=== PATIENT | female | born 1975 | race Caucasian/White ===

== ENCOUNTER 2017-04-30 10:28 | Observation (INO) | payer OTHER ==
[2017-04-30] MEDS ORDERED: BABY ASPIRIN 81 MG CHEW PO ONE (10:43)
--- NOTE | 2017-04-30 10:49 | ERPHSYRPT ---
- History of Present Illness Time Seen by Provider: 04/30/17 10:39 Historian: patient Exam Limitations: no limitations Patient Subjective Stated Complaint: PT STATES SHE WAS STANDING AT WORK AND BEGAN HAVING CHEST PAIN. DENIESA [place] NAUSEA, OR DIAPHORESIS. DID NOT BECOME SOB. Triage Nursing Assessment: PT PINK, WARM, DRY. RADIAL PULSES STRONG. LUNG SOUNDS CLEAR AND EQUAL. Physician History: 41-year-old white female with history of high blood pressure arrives with complaint of pain in her anterior left chest and an upper mid chest symptoms since 7:30 described as intermittent she describes the pain which is she states lasts seconds in duration but is recurrent and a feeling of uncomfortableness in her anterior chest which has been lasting longer as long as 5 minutes at a time again intermittently. She is not short of breath she she is not coughing she has no nausea vomiting diaphoresis. Past medical history includes high blood pressure Past surgical history includes tonsillectomy and adenoidectomy and tubal ligation. Timing/Duration: today (began at 7:00 this morning at work) Activities at Onset: other (standing at work) Quality: pressure, tightness Location: other (left upper chest and upper middle chest) Chest Pain Radiation: no radiation Severity of Pain-Max: moderate Severity of Pain-Current: none Modifying Factors: Improves With: nothing Associated Symptoms: No nausea, No vomiting, No palpitations, No heartburn, No abdominal pain, No shortness of breath, No cough, No hurts to breathe, No diaphoresis, No chills, No fever, No fatigue, No weakness, No swelling/lump in chest, No syncope, No rash, No headache, No dizziness, No edema, No back pain Prior Chest Pain/Cardiac Workup: no prior chest pain Nitro Today/Relief: no nitro taken today Aspirin Treatment Today: 81 mg x 4, provided by ED Allergies/Adverse Reactions: Penicillins Allergy (Verified 04/30/17 10:37) Sulfa (Sulfonamide Antibiotics) Allergy (Verified 04/30/17 10:37) Home Medications: Losartan Potassium 25 mg PO DAILY 04/30/17 [History] Hx Tetanus, Diphtheria Vaccination/Date Given: Yes (UP TO DATE) Hx Influenza Vaccination/Date Given: No Hx Pneumococcal Vaccination/Date Given: No Immunizations Up to Date: Yes - Review of Systems Constitutional: No Fever, No Chills Eyes: No Symptoms Ears, Nose, & Throat: No Symptoms Respiratory: No Cough, No Dyspnea Cardiac: Chest Pain, No Edema, No Palpitations, No Syncope, No Orthopnea, No PND Abdominal/Gastrointestinal: No Abdominal Pain, No Nausea, No Vomiting, No Diarrhea Genitourinary Symptoms: No Dysuria Musculoskeletal: No Back Pain, No Neck Pain Skin: No Rash Neurological: No Dizziness, No Focal Weakness, No Sensory Changes Psychological: No Symptoms Endocrine: No Symptoms All Other Systems: Reviewed and Negative - Past Medical History Pertinent Past Medical History: Yes Cardiac History: Hypertension - Past Surgical History Past Surgical History: Yes Female Surgical History: Tubal Ligation - Social History Smoking Status: Never smoker Exposure to second hand smoke: No Drug Use: none Patient Lives Alone: No - Female History Hx Last Menstrual Period: MID MARCH 2017 - Nursing Vital Signs Nursing Vital Signs: Initial Vital Signs Temperature 98.6 F 04/30/17 10:29 Pulse Rate 80 04/30/17 10:29 Respiratory Rate 18 04/30/17 10:29 Blood Pressure 140/77 04/30/17 10:29 O2 Sat by Pulse Oximetry 100 04/30/17 10:29 Pain Scale Pain Intensity 0 - Physical Exam General Appearance: no apparent distress, alert Eye Exam: PERRL/EOMI, eyes nml inspection Ears, Nose, Throat Exam: normal ENT inspection, moist mucous membranes Neck Exam: normal inspection, non-tender, supple, full range of motion Respiratory Exam: normal breath sounds, lungs clear, No respiratory distress Cardiovascular Exam: regular rate/rhythm, normal heart sounds Gastrointestinal/Abdomen Exam: soft, No tenderness, No mass Back Exam: normal inspection, No CVA tenderness, No vertebral tenderness Extremity Exam: normal inspection, normal range of motion Neurologic Exam: alert, oriented x 3, cooperative, normal mood/affect, sensation nml, No motor deficits Skin Exam: normal color SpO2 Interpretation: normal (100%) SpO2: 100 Oxygen Delivery: Room Air - Course Nursing assessment & vital signs reviewed: Yes EKG Interpreted by Me: RATE (69m bpm), Sinus Rhythm, NORMAL AXIS, NORMAL QRS, Other (EKG: Normal sinus rhythm, 69 bpm, normal axis, no acute ST or T wave changes noted, essentially normal EKG) - Radiology Exams Chest X-ray Interpretation: Discussed w/ radiologist, Other (chest x-ray: Apical lordotic chest demonstrates normal heart lungs and bony thorax with incidental scattered calcified granulomas) Ordered Tests: Active Orders 24 hr Category Date Time Status Design Engineering Manager STAT Care 04/30/17 10:37 Active EKG-ER Only STAT Care 04/30/17 10:37 Active IV Insertion STAT Care 04/30/17 10:37 Active CHEST 1 VIEW (PORTABLE) Stat Exams 04/30/17 10:43 Completed CBC W DIFF Stat Lab 04/30/17 10:50 Completed CMP Stat Lab 04/30/17 10:50 Completed D-DIMER QUANTITATION Stat Lab 04/30/17 10:50 Completed HCG QUALITATIVE,SERUM Stat Lab 04/30/17 10:50 Completed TROPONIN Q3H Lab 04/30/17 10:45 Completed TROPONIN Q3H Lab 04/30/17 13:45 Ordered TROPONIN Q3H Lab 04/30/17 16:45 Ordered TROPONIN Q3H Lab 04/30/17 19:45 Ordered TROPONIN Q3H Lab 04/30/17 22:45 Ordered Medication Summary Discontinued Medications Generic Name Dose Route Start Last Admin Trade Name Freq PRN Reason Stop Dose Admin Aspirin 324 mg 04/30/17 10:43 04/30/17 10:52 Baby Aspirin 81 Mg Chew PO 04/30/17 10:44 324 mg STAT ONE Administration Aspirin Confirm 04/30/17 10:51 Baby Aspirin 81 Mg Chew Administered 04/30/17 10:52 Dose 324 mg .ROUTE .STK-MED ONE Lab/Rad Data: Laboratory Result Diagrams 04/30/17 10:50 04/30/17 10:50 Laboratory Results 04/30/17 04/30/17 04/30/17 Range/Units 10:50 10:50 10:50 WBC (4.0-10.5) K/mm3 RBC (4.1-5.4) M/mm3 Hgb (12.0-16.0) gm/dl Hct (35-47) % MCV (78-100) fl MCH (26-32) pg MCHC (32-36) g/dl RDW (11.5-14.0) % Plt Count (150-450) K/mm3 MPV (6-9.5) fl Gran % (36.0-66.0) % Lymphocytes % (24.0-44.0) % Monocytes % (0.0-12.0) % Eosinophils % (0.00-5.0) % Basophils % (0.0-0.4) % Basophils # (0-0.4) D-Dimer 217 (0-500) ng/mL Sodium 139 (136-145) mEq/L Potassium 4.1 (3.5-5.1) mEq/L Chloride 104 (98-107) mEq/L Carbon Dioxide 25.9 (21-32) mEq/L Anion Gap 13.2 (5-15) MEQ/L BUN 8 L (9-20) mg/dL Creatinine 0.69 (0.55-1.30) mg/dl Estimated GFR > 60 ML/MIN Glucose 97 (70-110) MG/DL Calcium 9.2 (8.5-10.1) mg/dL Total Bilirubin 0.20 (0.2-1.0) mg/dL AST 12 L (15-37) U/L ALT 19 (12-78) U/L Alkaline Phosphatase 114 (46-116) U/L Troponin I (0.000-0.056) ng/ml Serum Total Protein 7.0 (6.4-8.2) gm/dL Albumin 3.5 (3.4-5.0) g/dL Serum , Qual NEGATIVE (Negative) 04/30/17 04/30/17 Range/Units 10:50 10:45 WBC 14.1 H (4.0-10.5) K/mm3 RBC 4.34 (4.1-5.4) M/mm3 Hgb 12.1 (12.0-16.0) gm/dl Hct 38.8 (35-47) % MCV 89.4 (78-100) fl MCH 27.9 (26-32) pg MCHC 31.2 L (32-36) g/dl RDW 15.0 H (11.5-14.0) % Plt Count 365 (150-450) K/mm3 MPV 10.0 H (6-9.5) fl Gran % 69.0 H (36.0-66.0) % Lymphocytes % 23.1 L (24.0-44.0) % Monocytes % 6.9 (0.0-12.0) % Eosinophils % 0.8 (0.00-5.0) % Basophils % 0.2 (0.0-0.4) % Basophils # 0.03 (0-0.4) D-Dimer (0-500) ng/mL Sodium (136-145) mEq/L Potassium (3.5-5.1) mEq/L Chloride (98-107) mEq/L Carbon Dioxide (21-32) mEq/L Anion Gap (5-15) MEQ/L BUN (9-20) mg/dL Creatinine (0.55-1.30) mg/dl Estimated GFR ML/MIN Glucose (70-110) MG/DL Calcium (8.5-10.1) mg/dL Total Bilirubin (0.2-1.0) mg/dL AST (15-37) U/L ALT (12-78) U/L Alkaline Phosphatase (46-116) U/L Troponin I < 0.017 (0.000-0.056) ng/ml Serum Total Protein (6.4-8.2) gm/dL Albumin (3.4-5.0) g/dL Serum , Qual (Negative) - Progress Progress: improved Air Movement: fair Progress Note: 04/30/17 11:55 Patient with complaints that she still has a little "little bit" of discomfort left anterior chest. Patient's chest x-ray, EKG, CBC CMP troponin are normal. D-dimeris within normal limits, Will discuss the patient's case with DR Orosco. 04/30/17 12:03 Patient's case is discussed with Dr. Orosco will place patient on observation obtain serial troponins continue telemetry - Departure Time of Disposition: 12:04 Departure Disposition: Observation Clinical Impression: Chest pain Qualifiers: Chest pain type: unspecified Qualified Code(s): R07.9 - Chest pain, unspecified Condition: Fair Critical Care Time: No Referrals: SRIKANTH BRYANT [Primary Care Provider] -
[2017-04-30] MEDS ORDERED: BABY ASPIRIN 81 MG CHEW ONE (10:51)
[2017-04-30 10:53] LABS: BASOPHIL % 0.2 % (0.0-0.4); Eosinophil % 0.8 % (0.00-5.0); Lymphocytes % 23.1 % (24.0-44.0); Mean Cell Volume 89.4 fl (78-100); Mean Corpuscular Hemoglobin 27.9 pg (26-32); Monocytes % 6.9 % (0.0-12.0); Platelet Count 365 K/mm3 (150-450); Red Blood Count 4.34 M/mm3 (4.1-5.4); White Blood Count 14.1 K/mm3 (4.0-10.5)
--- NOTE | 2017-04-30 10:58 | XRAY ---
Indication: Chest pain. Comparison: None Portable apical lordotic chest demonstrates normal heart, lungs, and bony thorax with incidental scattered calcified granulomas.
[2017-04-30 11:48] LABS: ALBUMIN 3.5 g/dL (3.4-5.0); ALKALINE PHOSPHATASE 114 U/L (46-116); ANION GAP 13.2 MEQ/L (5-15); BLOOD UREA NITROGEN 8 mg/dL (9-20); CHLORIDE 104 mEq/L (98-107); Carbon Dioxide 25.9 mEq/L (21-32); Glucose 97 MG/DL (70-110); Potassium 4.1 mEq/L (3.5-5.1); SGOT/AST 12 U/L (15-37); SGPT/ALT 19 U/L (12-78); SODIUM 139 mEq/L (136-145)
[2017-04-30] MEDS ORDERED: Zofran 4 MG/2 ML VIAL IV PRN (12:17)
[2017-04-30] MEDS ORDERED: MORPHINE SULFATE 4 MG INJ IV PRN (12:17)
[2017-04-30] MEDS: TYLENOL 325 MG PO PRN ×2 (14:35→22:17)
[2017-04-30] MEDS: Voltaren GEL TOP SCH ×2 (16:23→22:15)
[2017-04-30] MEDS: Cozaar 50 MG PO SCH (16:24)
[2017-05-01 05:41] LABS: BASOPHIL % 0.2 % (0.0-0.4); Granulocytes % 54.4 % (36.0-66.0); Lymphocytes % 36.3 % (24.0-44.0); Monocytes % 7.1 % (0.0-12.0); Platelet Count 347 K/mm3 (150-450); Red Blood Count 4.12 M/mm3 (4.1-5.4); Red Cell Distribution Width 15.1 % (11.5-14.0)
[2017-05-01 05:45] LABS: Mean Corpuscular Hemoglobin 27.6 pg (26-32)
[2017-05-01 06:02] LABS: ALBUMIN 3.2 g/dL (3.4-5.0); ALKALINE PHOSPHATASE 102 U/L (46-116); ANION GAP 12.5 MEQ/L (5-15); BLOOD UREA NITROGEN 10 mg/dL (9-20); CHLORIDE 105 mEq/L (98-107); Carbon Dioxide 26.1 mEq/L (21-32); Glucose 89 MG/DL (70-110); Potassium 4.3 mEq/L (3.5-5.1); SGOT/AST 11 U/L (15-37); SGPT/ALT 17 U/L (12-78); SODIUM 139 mEq/L (136-145); Total Protein 6.7 gm/dL (6.4-8.2)
[2017-05-01 07:21] VITALS: BP 128/73; PULSE 73; O2SAT 96
--- NOTE | 2017-05-01 07:37 | PCM.DCORD ---
- Discharge Discharge Date: 05/01/17 Disposition: Home, Self-Care Condition: Fair Prescriptions: New Diclofenac Sodium Gel [Voltaren GEL] 100 gm TP TID PRN #1 gel..gm. PRN Reason: Pain Continue Losartan Potassium 25 mg PO DAILY Follow up with: SRIKANTH BRYANT [Primary Care Provider] -
--- NOTE | 2017-05-01 07:48 | SSS ---
DISCHARGE DIAGNOSIS: CHEST PAIN DUE TO CHEST WALL INFLAMMATION. HISTORY OF PRESENT ILLNESS: The patient is a 41 year-old white female who reports that she was standing at work and began having chest discomfort. 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 PAST MEDICAL/SURGICAL HISTORY: Hypertension. HOME MEDICATIONS: Losartan 25 mg daily. ALLERGIES: PENICILLIN, SULFA. PHYSICAL EXAMINATION: Revealed an obese white female currently in no distress. Her vital signs on admission to the emergency room showed temperature 98.6F, pulse 80, respiratory rate 18, blood pressure 140/77. O2 saturation is 100% on room air. HEENT: Normocephalic, atraumatic. Pupils equal round reactive to light. Extraocular movements are intact. Oropharynx is pink and moist. NECK: Supple without lymphadenopathy, thyromegaly or JVD. CHEST: Clear to auscultation. There is tenderness reproduced by applying pressure to the sternum in the mid portion on either side of the sternum. HEART: Regular rate and rhythm without murmurs, rubs or gallops. ABDOMEN: Soft, nontender, nondistended without hepatosplenomegaly or masses. EXTREMITIES: Without clubbing, cyanosis or edema. NEUROLOGIC: The patient is alert and oriented x3. No focal deficits are noted. LAB DATA AND TESTS: During her stay troponins several times all less than 0.017. She had a D-dimer that was normal at 217. test was negative. Metabolic panel was essentially entirely normal. Her CBC showed an elevation of white blood cell count of 14,100, hemoglobin 12.1, PLT count 365,000. Chest x-ray showed scattered calcified granulomas. EKG showed normal sinus rhythm with no acute ST-T wave changes, essentially appearing to be normal EKG. HOSPITAL COURSE: The patient was admitted to the medicine [facility] and was in observation overnight and continued to have episodes of chest pain. We applied Voltaren gel to the chest wall which the patient does report was helpful. By the morning of 05/01/2017 the patient was felt to be ready for discharge home again. She will be sent home on some Voltaren gel. She will see her primary care physician in the next week. We discussed with her possibly getting a treadmill examination to further evaluate her cardiac status. The patient did have follow up laboratory studies with a white blood cell count that was down to 10,000. The patient had no evidence of any infection to explain the elevation of white blood cell count initially but now it is back to normal anyway.
[2017-05-01] MEDS: Cozaar 50 MG PO SCH (08:41)
[2017-05-01] MEDS: Voltaren GEL TOP SCH (08:43)
[2017-05-01] MEDS ORDERED: NON-FORMULARY ITEM (Losartan Potassium [Losartan Potassium] 25 MG) PO SCH (10:00)
[2017-05-01] MEDS ORDERED: ECOTRIN 81 MG PO SCH (10:00)
== END 2017-05-01 10:30 | disposition home or self-care (01) ==
LOC: ED 10:28 → MED SURG 12:12
PROVIDERS: ADMIT Family Medicine; ATTEND Family Medicine
DX: J98.8 Other specified respiratory disorders (principal); I10 Essential (primary) hypertension
CPT/HCPCS: 36000; 36415; 71010; 80053; 84484; 84703; 85025; 85379; 93005; 93041; 93268; 96360; 99285; G0378; J2270; A9270-GY

== ENCOUNTER 2024-01-14 13:22 | Emergency (ER) | payer OTHER ==
--- NOTE | 2024-01-14 13:27 | ERPHSYRPT ---
- History of Present Illness Time Seen by Provider: 01/14/24 13:27 Source: patient, EMS Exam Limitations: no limitations Physician History: This is an obese 48-year-old white female patient who has a history of hypertension and presents to the emergency department by the paramedics secondary to falling down 1 step when she rolled her right ankle. Patient was unable to ambulate and therefore she contacted an ambulance to bring her to the emergency department. Patient has no complaints of any other areas of injury. Method of Injury: fell, twisted Occurred: just prior to arrival Quality: constant, aching, throbbing Severity of Pain-Max: moderate Severity of Pain-Current: moderate Lower Extremities Pain: ankle: right Modifying Factors: Improves With: movement Associated Symptoms: unable to bear weight Allergies/Adverse Reactions: lisinopril Allergy (Intermediate, Verified 01/14/24 13:30) itch and swell Penicillins Allergy (Verified 04/30/17 10:37) Sulfa (Sulfonamide Antibiotics) Allergy (Verified 04/30/17 10:37) Home Medications: Metoprolol Succinate 50 mg [Toprol Xl 50 MG] 50 mg PO DAILY 01/14/24 [History] Hx Tetanus, Diphtheria Vaccination/Date Given: Yes (UP TO DATE) Hx Influenza Vaccination/Date Given: No Hx Pneumococcal Vaccination/Date Given: No Travel Risk - International Travel Have you traveled outside of the country in past 3 weeks: No - Emerging Infectious Disease Are you exhibiting symptoms associated with any current EIDs: No - Review of Systems Constitutional: No Symptoms Eyes: No Symptoms Ears, Nose, & Throat: No Symptoms Respiratory: No Symptoms Cardiac: No Symptoms Abdominal/Gastrointestinal: No Symptoms Genitourinary Symptoms: No Symptoms Musculoskeletal: Injury Skin: No Symptoms Neurological: No Symptoms (Right ankle) Psychological: No Symptoms Endocrine: No Symptoms Hematologic/Lymphatic: No Symptoms Immunological/Allergic: No Symptoms All Other Systems: Reviewed and Negative - Past Medical History Pertinent Past Medical History: Yes Neurological History: No Pertinent History Cardiac History: Hypertension Respiratory History: No Pertinent History Endocrine Medical History: No Pertinent History Musculoskeletal History: No Pertinent History - Past Surgical History Past Surgical History: Yes Female Surgical History: Tubal Ligation - Social History Smoking Status: Never smoker Exposure to second hand smoke: No Drug Use: none Patient Lives Alone: No - Nursing Vital Signs Nursing Vital Signs: Initial Vital Signs Temperature 98.2 F 01/14/24 13:24 Pulse Rate 91 H 01/14/24 13:24 Respiratory Rate 20 01/14/24 13:24 Blood Pressure 130/58 01/14/24 13:24 O2 Sat by Pulse Oximetry 100 01/14/24 13:24 Pain Scale Pain Intensity 5 - Physical Exam General Appearance: no apparent distress, alert, anxiety, obese Eyes, Ears, Nose, Throat Exam: normal ENT inspection, moist mucous membranes Neck Exam: normal inspection, non-tender, supple, full range of motion Cardiovascular/Respiratory Exam: chest non-tender, no respiratory distress Gastrointestinal/Abdominal Exam: non-tender Back Exam: normal inspection, normal range of motion, No CVA tenderness, No vertebral tenderness Hips Exam: bilateral: non-tender, normal inspection, normal range of motion Legs Exam: bilateral leg: non-tender, normal inspection, normal range of motion, no evidence of injury Knees Exam: bilateral knee: non-tender, normal inspection, normal range of motion, no evidence of injury Ankle Exam: right ankle: bone tenderness, deformity, soft tissue tenderness, swelling, left ankle: non-tender, normal inspection, normal range of motion, no evidence of injury Foot Exam: bilateral foot: non-tender, normal inspection, normal range of motion, no evidence of injury Neuro/Tendon Exam: normal sensation, normal motor functions, normal tendon functions, responds to pain, no evidence tendon injury Mental Status Exam: alert, oriented x 3, cooperative Skin Exam: normal color, warm, dry SpO2 Interpretation: normal - Course Nursing assessment & vital signs reviewed: Yes Ordered Tests: Active Orders 24 hr Category Date Time Status Crutches STAT Care 01/14/24 13:51 Active Splint STAT Care 01/14/24 13:50 Active ANKLE (3 VIEWS) Stat Exams 01/14/24 13:32 Completed Medication Summary Discontinued Medications Generic Name Dose Route Start Last Admin Trade Name Freq PRN Reason Stop Dose Admin Ibuprofen 600 mg 01/14/24 13:50 Ibuprofen 600 Mg Tablet PO 01/14/24 13:51 STAT ONE Oxycodone/Acetaminophen 1 tab 01/14/24 13:50 Oxycodone Hcl/Apap 5 Mg/325 Mg Tablet PO 01/14/24 13:51 STAT STA - Progress Progress: improved, pain not gone completely, re-examined Progress Note: 01/14/24 14:04 Medical decision making and assignment of low to moderate complexity of this patient's medical issue is based on review of the patient's past medical history, review the patient's medication list, review of patient drug allergy list, history of present illness and physical findings on examination. The workup in this patient includes x-ray of the patient's right ankle. I interpreted the patient's x-ray initially of the patient's right ankle. There is angulated, very minimally displaced distal fibular fracture. There is also a fracture noted of the tibial medial malleolus. The final read was performed by the radiologist after I had made my preliminary read. There is agreement in the readings. Patient was provided ibuprofen 6 or milligrams orally and oxycodone 5/325 orally here in the emergency department. We placed a posterior splint. Patient is to be nonweightbearing and will be provided crutches. 01/14/24 14:10 Apparently, Dr. Matos will see the patient now rather than on 01/21/2024. Therefore we will wrap the foot and ankle in Jeronimo wrap and take her by wheelchair to his office. Counseled pt/family regarding: diagnosis, need for follow-up, rad results Medical Desision Making - Independent Historian Additional History obtained from: Machine Load Clerk/EMT - Diagnostic Testing Diagnostic test were ordered, analyzed, and reviewed by me: Yes Radiological Interpretation: Interpreted by me, Reviewed by me, Teleradiologist Report - Risk of complications The pt has a mod risk of morbidity or mortality based on: Need for prescription drug management - Departure Departure Disposition: Home Clinical Impression: Closed right ankle fracture Condition: Stable Critical Care Time: No Additional Instructions: Ice pack to right ankle 3 times a day for the next 48 hours. Nonweightbearing u ntil after you have been seen by podiatry. Continue your other medication as prescribed. Continue ibuprofen 600 mg orally 3 times a day with food for the next 5 days. Follow-up with podiatry at your scheduled appointment date and time. Prescriptions: Oxycodone HCl/Acetaminophen [Percocet 5-325 mg Tablet] 1 each PO Q8H PRN PRN #6 tablet MDD 3 PRN Reason: Moderate To Severe Pain
[2024-01-14 13:30] VITALS: BP 130/58; PULSE 91; RESP 20; TEMP 98.2; O2SAT 100
--- NOTE | 2024-01-14 13:57 | XRAY ---
Indication: Pain and swelling following fall. Comparison: None 3 view right ankle demonstrates mildly displaced fracture base medial malleolus, nondisplaced posterior malleolus fracture, and mildly angulated oblique fracture distal shaft fibula. Talus subluxed laterally. No other bony, articular, or soft tissue abnormalities.
[2024-01-14] MEDS ORDERED: PERCOCET TABLET 5/325MG ONE (13:59)
[2024-01-14] MEDS ORDERED: MOTRIN 600 MG ONE (13:59)
[2024-01-14] MEDS: PERCOCET TABLET 5/325MG PO STA (14:01)
[2024-01-14] MEDS: MOTRIN 600 MG PO ONE (14:01)
== END 2024-01-14 14:24 | disposition home or self-care (01) ==
LOC: ED 13:22
DX: S82.841A Displaced bimalleolar fracture of right lower leg, initial encounter for closed fracture (principal); S82.831A Other fracture of upper and lower end of right fibula, initial encounter for closed fracture; W10.9XXA Fall (on) (from) unspecified stairs and steps, initial encounter; I10 Essential (primary) hypertension; Z79.891 Long term (current) use of opiate analgesic; Z79.899 Other long term (current) drug therapy
CPT/HCPCS: 73610; 99283; A9270-GY

== ENCOUNTER 2024-01-15 12:19 | Day surgery (SDC) | payer OTHER ==
[2024-01-15] MEDS ORDERED: Lactated Ringers 1,000 ML IV ONE ×2 (12:56→16:51)
[2024-01-15] MEDS ORDERED: CLINDAMYCIN-D5W 900 MG/50 ML*** 900 MG/50 ML BAG IV ONE (12:56)
[2024-01-15] MEDS: Lactated Ringers 1,000 ML IV SCH (13:02)
[2024-01-15] MEDS: CLINDAMYCIN-D5W 900 MG/50 ML*** 900 MG/50 ML BAG IV STA (13:03)
[2024-01-15] MEDS: Reglan 10 MG/2 ML IV ONE (13:26)
[2024-01-15] MEDS: TYLENOL EXTRA STRENGTH 500 MG PO ONE (13:26)
[2024-01-15] MEDS: Pepcid 20 MG VIAL IV ONE (13:26)
[2024-01-15] MEDS: Decadron 4 MG PO ONE (13:26)
[2024-01-15] MEDS: celeBREX 100 MG PO ONE (13:27)
[2024-01-15] MEDS: NEURONTIN PO ONE (13:27)
[2024-01-15] MEDS: Toprol-Xl 25MG Tablets PO ONE (13:27)
[2024-01-15 13:33] LABS: Hematocrit 41.5 % (35-47); Hemoglobin 13.2 g/dL (12.0-16.0); Mean Cell Volume 96.3 fL (78-100); Mean Corpuscular Hemoglobin 30.6 pg (26-32); Mean Corpuscular Hgb Concent. 31.8 g/dL (32-36); Mean Platelet Volume 9.8 fL (7.5-11.0); Platelet Count 308 x10^3/uL (150-450); Red Blood Count 4.31 x10^6/uL (4.1-5.4); Red Cell Distribution Width 13.5 % (11.5-14.0); White Blood Count 11.6 x10^3/uL (4.0-10.5)
[2024-01-15 13:45] LABS: ANION GAP 12.1 MEQ/L (5-15); BILIRUBIN,TOTAL 0.5 mg/dL (0.2-1.3); Calcium 9.8 mg/dL (8.4-10.2); Creatinine 1 0.67 mg/dL (0.52-1.04); EST GLOMERULAR FILTRATION RATE 109.1 ML/MIN; Potassium 3.7 mmol/L (3.5-5.1); Total Protein 7.4 g/dL (6.3-8.2)
[2024-01-15] MEDS: SUBLIMAZE 100 MCG/2 ML IV ONE (13:57)
[2024-01-15] MEDS ORDERED: Xylocaine-Mpf 2% 5 Ml Vial ONE (14:24)
[2024-01-15] MEDS ORDERED: DIPRIVAN 200 MG/20 ML IV ONE ×2 (14:24→16:26)
[2024-01-15] MEDS ORDERED: Versed 2 MG/2 ML Injection ONE (14:24)
[2024-01-15] MEDS ORDERED: Marcaine 0.5%/Epinephrine 10 ML ONE (14:24)
[2024-01-15] MEDS ORDERED: SUBLIMAZE 100 MCG/2 ML ONE ×2 (14:24→16:39)
[2024-01-15] MEDS ORDERED: Naropin 0.5% 30 ML VIAL ONE (14:24)
[2024-01-15] MEDS ORDERED: Quelicin Fliptop 200 MG/10 ML ONE (16:39)
[2024-01-15] MEDS ORDERED: Decadron 4 MG INJ ONE (16:39)
[2024-01-15] MEDS ORDERED: Zofran 4 MG/2 ML VIAL ONE ×2 (16:39→19:37)
[2024-01-15] MEDS ORDERED: TORAdol 30 mg Injection ONE (18:46)
[2024-01-15] MEDS: Zofran 4 MG/2 ML VIAL IV STA (19:41)
[2024-01-15 22:15] VITALS: TEMP 96.6
[2024-01-15 23:48] VITALS: BP 144/82; PULSE 82; RESP 19
[2024-01-15 23:50] VITALS: O2SAT 99
--- NOTE | 2024-01-16 13:38 | OP ---
SURGERY DATE/TIME: 01/15/2024 6578 PREOPERATIVE DIAGNOSES: 1) Right ankle trimalleolar fracture. 2) Right ankle pain and syndesmotic disruption. POSTOPERATIVE DIAGNOSES: 1) Right ankle trimalleolar fracture. 2) Right ankle pain and syndesmotic disruption. PROCEDURES: 1) Open reduction internal fixation trimalleolar fracture. 2) Syndesmotic reduction. SURGEON: Carlo Agee DPM. CREDIT CONTROL ASSISTANT: None. HEMOSTASIS: Thigh tourniquet set to 325 mm of Mercury for 90 total tourniquet minutes. QUANTITATIVE BLOOD LOSS: Approximately 10 cc. MATERIALS: Annalisa 7-hole one-third tubular plate with a 3.5 x 55 mm for the malleolus, a 3.5 x 60 and a 2.5 x 55 mm screw, 4-0 Monocryl, 2-0 Vicryl, 3-0 Nylon and surgical skin stacey. INJECTABLES: See anesthesia report for details. Popliteal and saphenous block performed prior to intervention. INDICATION FOR SURGERY: Amarilys is a very pleasant 48-year-old female who presented Sunday afternoon for a fall down her stairs. She fell down the last step and had a rotational injury that resulted in her leg falling behind her and her feeling a pop in her ankle with immediate pain. She presented to the ER and they sent her to our services. She was consented for surgery at that time given she had suffered a trimalleolar fracture which is extraordinarily unstable. As a result, the patient understands all risks, complications and benefits of surgical intervention at this time including but not limited to infection, hematoma, seroma, possibility of delayed wound healing or nonwound healing, possibility of delayed bone healing and failure of bones to heal adequately. There is also a possibility of irritating hardware that may need to be removed at a later date and possibility of need for further surgical intervention. Plenty of time was allowed for the patient to ask questions and were answered to her apparent satisfaction. It is at this time we decided to proceed. DESCRIPTION OF PROCEDURE AND FINDINGS: The patient brought to the postoperative anesthesia care unit prior to the procedure to have a popliteal and saphenous block performed to the right lower extremity. See anesthesia report for details. Following this the patient was brought into the OR and placed on the OR table in the supine position. At this time, general anesthesia was administered until the patient was adequate sedated. A well-padded thigh tourniquet was applied to the patient's upper thigh. The tourniquet was set to 320 mm of Mercury. At this time, the right lower extremity was prepped and draped in the typical sterile fashion and lowered onto the surgical field. At this time attention was directed to the lateral aspect of the right ankle where under fluoroscopic guidance, the proximal and distal ends of the fracture were identified. Esmarch was utilized to exsanguinate the leg and the tourniquet was then inflated. From that standpoint, a linear incision was carried from the level of the skin down to the level of the bone quickly encountering the fracture site and hematoma this was flushed with copious amounts of sterile saline. Following this, a dental pick was utilized to clean out any periosteum that was enveloped in the fracture site and restoring the normal anatomical position. Once this was maintained and foot was held in adequate position to restore the length of the fibula, this was held down with lobster claw and point of reduction forceps. A 7-hole one-third tubular plate was then introduced locking up distally and proximally with two cortical screws and then a combination of locking and nonlocking screws were utilized to gain adequate compression with the plate against the fracture site. From that standpoint, we moved to the medial malleolus where once again a linear incision was carried out over the anterior colliculus of the medial malleolus this was carried down to the level of bone with direct approach. Once the fracture was identified and the hematoma was cleansed out utilizing a dental pick and copious amounts of sterile saline, the fracture was reduced as anatomically as possible this was then pinned utilizing a K-wire and then two cannulated 2.5 x 60 and 3.5 x 55 screws were utilized to gain compression and hold the reduction and rotation in place. Following this, attention was directed back to the syndesmosis it was checked and deemed to be incompetent. Decision was made to throw a single tricortical syndesmotic screw which measured 3.5 x 55 mm in length. From that standpoint, stress views were taken. The position was deemed to be adequate. Copious amounts of sterile saline were utilized to flush the surgical site at this time. A 2-0 Vicryl was utilized to coapt the subcutaneous skin edges in a simple interrupted buried-type fashion and then surgical stacey were then utilized to florian the skin edges. Following this a dressing consisting of Betadine, Adaptic, 4x4, Kerlix and a well-padded posterior splint with Sugar-Tong was applied to the right lower extremity with the foot orthogonal relative to longitudinal aspect of the leg. The patient was then reversed from anesthesia and returned to the postoperative anesthesia care unit with vital signs stable and vascular status intact. The patient handled the anesthesia as well as the procedure without significant complication. Postoperative orders as indicated in the patient's discharge chart.
== END 2024-01-15 23:53 | disposition home or self-care (01) ==
LOC: SDC 12:19 → MED SURG 20:48 → SDC 23:53
PROVIDERS: ATTEND Podiatrist Foot & Ankle Surgery
DX: S82.851A Displaced trimalleolar fracture of right lower leg, initial encounter for closed fracture (principal); M25.571 Pain in right ankle and joints of right foot; S93.431A Sprain of tibiofibular ligament of right ankle, initial encounter
CPT/HCPCS: 27822; 27829; 36415; 80053; 85027; J0330; J1100; J1885; J2250; J2405; J2704; J2795; J3010; A9270-GY